=== PATIENT | male | born 1985 | race Caucasian/White ===

== ENCOUNTER 2016-10-16 08:36 | Emergency (ER) | payer OTHER ==
[2016-10-16 08:49] VITALS: BP 120/89; PULSE 91; RESP 18; TEMP 97.1
[2016-10-16] MEDS ORDERED: methylPREDNISolone SOD SUCCI 125 MG/2 ML VIAL IM STA (09:01)
[2016-10-16] MEDS ORDERED: KETOROLAC 60 MG/2 ML VIAL IM STA (09:01)
[2016-10-16] MEDS ORDERED: ORPHENADRINE 30 MG/ML 2 ML VIAL IM STA (09:01)
--- NOTE | 2016-10-16 09:06 | ED ---
Back Pain HPI - General Chief Complaint: Back Pain/Injury Stated Complaint: back pain and rt hip pain, chronic Time Seen by Provider: 10/16/16 08:54 Source: patient, RN notes reviewed Limitations: physical limitation - History of Present Illness Initial Comments: 31 -year-old male presents emergency Department chief complaint of right hip and back pain. Patient states that he has chronic right hip and back pain. Patient states that it was sometime extend on the leg. After the fast 4 days it seems to increase. Patient states extends from the back into the buttock and down the back leg. Patient states that it was his leg up straight she'll get shooting pain in the back. Patient denies any loss of bowel or bladder function with this. Patient denies any saddle anesthesia. Patient denies any falls or trauma with this. Patient states it's much like his chronic pain is just flared up over the last 2 days that he was concerned. Patient states is not currently having any other symptoms at this time. Patient denies any nausea vomiting fever or chills with this. Patient denies any recent fever, chills, shortness of breath, chest pain, abdominal pain, nausea vomiting, numbness or tingling, dysuria or hematuria, constipation or diarrhea, headaches or visual changes, or any other current symptoms. - Related Data Previous Rx's Medication Instructions Recorded Ibuprofen [Motrin] 600 mg PO Q6HR PRN #20 tab 10/16/16 Orphenadrine [Norflex] 100 mg PO Q12H #10 tablet.er 10/16/16 predniSONE 50 mg PO DAILY #5 tab 10/16/16 Allergies Allergy/AdvReac Type Severity Reaction Status Date / Time No Known Allergies Allergy Verified 10/16/16 08:49 Review of Systems ROS Statement: Those systems with pertinent positive or pertinent negative responses have been documented in the HPI. ROS Other: All systems not noted in ROS Statement are negative. Past Medical History Past Medical History: No Reported History History of Any Multi-Drug Resistant Organisms: None Reported Past Surgical History: No Surgical Hx Reported Past Psychological History: No Psychological Hx Reported Smoking Status: Current every day smoker Past Alcohol Use History: None Reported Past Drug Use History: Marijuana General Exam Limitations: physical limitation General appearance: alert, in no apparent distress Head exam: Present: atraumatic, normocephalic, normal inspection ENT exam: Present: normal exam, mucous membranes moist Neck exam: Present: normal inspection. Absent: tenderness, meningismus, lymphadenopathy Respiratory exam: Present: normal lung sounds bilaterally. Absent: respiratory distress, wheezes, rales, rhonchi, stridor Cardiovascular Exam: Present: regular rate, normal rhythm, normal heart sounds. Absent: systolic murmur, diastolic murmur, rubs, gallop, clicks Back exam: Present: normal inspection, full ROM, tenderness (Right lower flank over the SI joint). Absent: CVA tenderness (R), CVA tenderness (L), vertebral tenderness, rash noted Expanded Back exam: Sciatic Notch Tenderness: Right, Positive Straight Leg Raise: Right Neurological exam: Present: alert, oriented X3, CN II-XII intact. Absent: motor sensory deficit Psychiatric exam: Present: normal affect Skin exam: Present: warm, dry, intact, normal color. Absent: rash Course Vital Signs 10/16/16 08:46 Temperature 97.1 F L Pulse Rate 91 Respiratory 18 Rate Blood Pressure 120/89 O2 Sat by Pulse 100 Oximetry Medical Decision Making - Medical Decision Making 31-year-old male presents for what appears to be a sciatica. Patient does have chronic back pain states this is much like A flareup. Similar start steroids and anti-inflammatories for the patient as well as muscle relaxers. We discussed return parameters and follow-up. We discussed all the patient's questions. He stated he understood and at this time he will be discharged home. Disposition Clinical Impression: Sciatica, right side Disposition: HOME SELF-CARE Condition: Stable Instructions: Sciatica (ED) Additional Instructions: Please use medication as discussed. Please follow up with family doctor if symptoms have not improved over the next two days. Please return to the emergency room if your symptoms increase or worsen or for any other concerns. Prescriptions: Ibuprofen [Motrin] 600 mg PO Q6HR PRN #20 tab PRN Reason: Pain Orphenadrine [Norflex] 100 mg PO Q12H #10 tablet.er predniSONE 50 mg PO DAILY #5 tab Referrals: None,Stated [Primary Care Provider] - 1-2 days Sebastian Son MD [STAFF PHYSICIAN] - 1-2 days Time of Disposition: 09:05
== END 2016-10-16 09:34 | disposition home or self-care (01) ==
LOC: EC 08:36
DX: M54.31 Sciatica, right side (principal); F17.200 Nicotine dependence, unspecified, uncomplicated
CPT/HCPCS: 99283; 96372 ×3; J2360; J2930; J1885